=== PATIENT | male | born 1935 | race Caucasian/White ===

== ENCOUNTER 2016-11-26 13:22 | Emergency (ER) | payer MEDICARE ==
[~2016-11-26] VITALS: Ht 182.9 cm; Wt 96.4 kg
[~2016-11-26 13:22] MED LIST: /ESCI10TA PO; ALBU83IN INH; APAP325T4 PO; ASPI1TAB PO; ASPI81CH PO; CALC0.25 PO; CALC0.5C6 PO; CARV12.5 PO; CLAR1TAB2 PO; CLOP75TA2 PO; CORE12.5 PO; D 501TAB PO; HYDR10TAB PO; INSUDET SC; INSULANT SC; INSUR SC; LASI40TA PO; LOSA25TA8 PO; LOTRCRE TOP; MAGN500T6 PO; METO25TA PO; METR500T10 PO; PROP50TA3 PO; ROBITUSSIN AC PO; SIMV40TA2 PO; TAMS0.4C PO; TAMS0.4C2 PO; VITA500019 PO; [UNRECOGNIZED DRUG - CODE] PO; [UNRECOGNIZED DRUG - REMARK]; insulin regular SQ
[2016-11-26] MEDS ORDERED: LEVO100T5 (13:39)
[2016-11-26] MEDS ORDERED: ASPIRIN 81 MG CHEW TABLET PO ONE (14:00)
[2016-11-26 14:05] LABS: BASO # 0.1 10^3/uL (0.0-0.2); BASO % 0.5 % (0.0-1.0); EOS # 0.1 10^3/uL (0.0-0.50); EOS % 0.6 % (0.0-3.0); IMMATURE GRANULOCYTE % 0.6 % (0-0); LYMPH # 0.9 10^3/uL (1.5-4.5); MEAN CORPUSCULAR HEMOGLOBIN 30.8 pg (27.0-33.0); MEAN CORPUSCULAR HGB CONC 33.4 g/dl (32.0-36.5); MEAN CORPUSCULAR VOLUME 92.1 fl (80.0-96.0); MONO % 8.3 % (0.0-5.0); NEUTROPHILS # 10.4 10^3/uL (1.8-7.7); PLATELET COUNT, AUTOMATED 263 10^3/uL (150-450); RED CELL DISTRIBUTION WIDTH 13.8 % (11.5-14.5); WHITE BLOOD COUNT 12.5 10^3/uL (4.0-10.0)
[2016-11-26 14:20] LABS: ADD MANUAL DIFFER NO; DIFF SLIDE NUMBER 268
[2016-11-26 14:41] LABS: ALBUMIN 3.2 GM/DL (3.2-5.2); ALBUMIN/GLOBULIN RATIO 0.97 (1.00-1.93); BILIRUBIN,DIRECT 0.2 MG/DL (0.0-0.2); BILIRUBIN,TOTAL 1.1 MG/DL (0.2-1.0); TOTAL PROTEIN 6.5 GM/DL (6.4-8.2)
--- NOTE | 2016-11-26 15:15 | REP ---
Portable chest x-ray: Single view. History: Dyspnea and cough. Comparison study: November 03, 2014. Findings: The patient is status post prior median sternotomy. 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 The heart itself is mildly enlarged, unchanged. Pulmonary vasculature is not increased. There is some fissural thickening noted on the right consistent with a very small amount of pleural fluid. There is a granulomatous calcification in the right lateral pleural angle, unchanged. Some stable benign appearing pleural thickening is noted bilaterally. Impression: Cardiomegaly with pacemaker. Fissural thickening noted on the right, question minimal amount of right pleural fluid. No acute infiltrate. Signed by Gregor Terrell MD 11/26/2016 03:34 P
[2016-11-26 15:23] LABS: CALCIUM LEVEL 9.3 MG/DL (8.8-10.2); CREATININE FOR GFR 1.87 MG/DL (0.70-1.30); GLOMERULAR FILTRATION RATE 37.1 (>35); POTASSIUM SERUM 4.2 MEQ/L (3.5-5.1)
[2016-11-26 17:39] VITALS: BP 158/87
--- NOTE | 2016-11-27 06:22 | ECGEPIP ---
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
== END 2016-11-26 17:52 | disposition home or self-care (01) ==
LOC: M ED 13:22
DX: R06.02 Shortness of breath (principal); R07.9 Chest pain, unspecified; I50.9 Heart failure, unspecified; I25.2 Old myocardial infarction; E11.9 Type 2 diabetes mellitus without complications; N18.9 Chronic kidney disease, unspecified; Z95.1 Presence of aortocoronary bypass graft; Z95.0 Presence of cardiac pacemaker; Z87.891 Personal history of nicotine dependence